=== PATIENT | female | born 1985 | race Caucasian/White ===

== ENCOUNTER 2018-09-16 13:12 | Emergency (ER) | payer MEDICAID ==
[~2018-09-16] VITALS: Ht 160 cm; Wt 47.6 kg
[2018-09-16] MEDS ORDERED: NICOTINE PATCH1 EAC4 TD (13:34)
[2018-09-16] MEDS ORDERED: ESSENTIAL DAIL1 EACH PO (13:35)
[2018-09-16] MEDS ORDERED: OMEPRAZOLE20 MG PO (13:35)
[2018-09-16] MEDS ORDERED: VITAMIN B-1100 M1 PO (13:35)
[2018-09-16] MEDS ORDERED: FOLIC ACID1 MG PO (13:36)
[2018-09-16] MEDS ORDERED: HYDROXYZINE HCL25 MG PO (13:37)
[2018-09-16] MEDS ORDERED: LIBRIUM (13:57)
[2018-09-16] MEDS ORDERED: TYLENOL325 M1 PO (13:57)
[2018-09-16] MEDS ORDERED: MAGNESIUM400 MG PO (17:32)
[2018-09-16] MEDS ORDERED: K-TAB ER20 MEQ PO (17:32)
--- OUTSIDE RECORDS SUMMARY | 2018-09-16 18:18 | XMS ---
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 No recent Security Events currently on file CRITERIA MET - [facility] - 2 Visits in 30 Days CARE PROVIDERS TAYLA QUINTERO Counselor: Mental Health Current PHONE: [phone] GAY GAINES [facility]/Behavioral Health Current PHONE: [phone] TERRY Potts [facility] [place] 05/24/2012-Current PHONE: Unknown [facility] Mental Health Provider Current for Living PHONE: [phone] JENNIFER STEWART Primary Care 05/24/2012-Current PHONE: Unknown Talya Quintero Primary Care Current PHONE: Unknown James Potts MD Primary Care 12/21/2011-Current PHONE: Unknown Billy Campbell Primary Care 12/24/2011-Bob Soni MD PHONE: Unknown Alesha Esteban Primary Care Current Family Medicine PHONE: [phone] Lorenza has no Care Guidelines for this patient. Janay VISIT COUNT (12 MO.) [address] [place] [address] BRADLEY Anders TOTAL 6 NOTE: Visits indicate total known visits. ED/UCC VISIT TRACKING (12 MO.) 09/16/2018 13:13 [facility] [place] TYPE: Emergency COMPLAINT: - WEAKNESS 09/13/2018 11:52 [facility]. TYPE: Emergency DIAGNOSES: - detoxing - Alcohol dependence with withdrawal, uncomplicated - Withdrawal (Alcohol) 06/25/2018 20:27 [facility] OR [facility]. TYPE: Emergency DIAGNOSES: - Shortness of Breath - Possible Pneumonia - Bronchitis, not specified as acute or chronic 04/26/2018 22:04 [facility] OR [facility]. TYPE: Emergency DIAGNOSES: - Abdominal Distension - Flank pain; Urinary pain - Abdominal distension (gaseous) 03/19/2018 22:17 [facility] OR [facility]. TYPE: Emergency DIAGNOSES: - Nose Deformity - Fracture of nasal bones, initial encounter for closed fracture - Facial Injury - Alcohol use, unspecified with intoxication, uncomplicated 02/22/2018 22:01 [facility] TYPE: Emergency DIAGNOSES: - Abdominal Pain - Unspecified abdominal pain INPATIENT VISIT TRACKING (12 MO.) No inpatient visits to display in this time frame [email or web address]
== END 2018-09-16 18:10 | disposition home or self-care (01) ==
LOC: ED 13:12
DX: E87.6 Hypokalemia (principal); E83.42 Hypomagnesemia; F10.239 Alcohol dependence with withdrawal, unspecified; F43.10 Post-traumatic stress disorder, unspecified; F17.200 Nicotine dependence, unspecified, uncomplicated; Z91.013 Allergy to seafood; Z91.030 Bee allergy status; Z79.899 Other long term (current) drug therapy
CPT/HCPCS: 71045; 80053; 81001; 83735; 85025; 96361; 96365; 96366; 96375; 99285-25; C9113; J2060; J2405; J3480; J7030

== ENCOUNTER 2018-09-28 19:21 | Emergency (ER) | payer MEDICAID ==
[~2018-09-28] VITALS: Ht 160 cm; Wt 47.6 kg
[~2018-09-28 19:21] MED LIST: ESSENTIAL DAIL1 EACH PO; FOLIC ACID1 MG PO; HYDROXYZINE HCL25 MG PO; K-TAB ER20 MEQ PO; LIBRIUM; MAGNESIUM400 MG PO; NICOTINE PATCH1 EAC4 TD; OMEPRAZOLE20 MG PO; TYLENOL325 M1 PO; VITAMIN B-1100 M1 PO
--- OUTSIDE RECORDS SUMMARY | 2018-09-28 19:24 | XMS ---
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 No recent Security Events currently on file CRITERIA MET - [facility] - 2 Visits in 30 Days CARE PROVIDERS TALYA QUINTERO Counselor: Mental Health Current PHONE: [phone] GAY GAINES [facility]/Behavioral Health Current PHONE: [phone] TERRY Potts [facility] [place]24/2012-Current PHONE: Unknown [facility] Mental Health Provider Current for Living PHONE: [phone] PCP_Unattributed Primary Care 05/24/2012-Current PHONE: Unknown Talya Quintero Primary Care Current PHONE: Unknown James Potts MD Primary Care 12/21/2011-Current PHONE: Unknown Billy Campbell Primary Care 12/24/2011-Bob Soni MD PHONE: Unknown Alesha Esteban Primary Care Current Family Medicine PHONE: [phone] Lorenza has no Care Guidelines for this patient. Janay VISIT COUNT (12 MO.) 5 [facility] 2 BRADLEY Anders TOTAL 7 NOTE: Visits indicate total known visits. ED/UCC VISIT TRACKING (12 MO.) 09/28/2018 19:22 [facility] [place] TYPE: Emergency COMPLAINT: - SHAKING,COLD 09/16/2018 13:13 [facility] [place] TYPE: Emergency COMPLAINT: - WEAKNESS DIAGNOSES: - Alcohol dependence with withdrawal, unspecified - Weakness - Hypomagnesemia - Post-traumatic stress disorder, unspecified - Allergy to seafood - Bee allergy status - Hypokalemia - Other long-term (current) drug therapy - Nicotine dependence, unspecified, uncomplicated 09/13/2018 11:52 [facility]. TYPE: Emergency DIAGNOSES: - detoxing - Alcohol dependence with withdrawal, uncomplicated - Withdrawal (Alcohol) 06/25/2018 20:27 [facility] OR [facility]. TYPE: Emergency DIAGNOSES: - Shortness of Breath - Possible Pneumonia - Bronchitis, not specified as acute or chronic 04/26/2018 22:04 [facility] OR [facility]. TYPE: Emergency DIAGNOSES: - Abdominal Distension - Flank pain; Urinary pain - Abdominal distension (gaseous) 03/19/2018 22:17 [facility] OR [facility]. TYPE: Emergency DIAGNOSES: - Nose Deformity - Fracture of nasal bones, initial encounter for closed fracture - Facial Injury - Alcohol use, unspecified with intoxication, uncomplicated 02/22/2018 22:01 [facility] OR [facility]. TYPE: Emergency DIAGNOSES: - Abdominal Pain - Unspecified abdominal pain INPATIENT VISIT TRACKING (12 MO.) No inpatient visits to display in this time frame [email or web address]
== END 2018-09-28 21:38 | disposition home or self-care (01) ==
LOC: ED 19:21
DX: E87.6 Hypokalemia (principal); F43.10 Post-traumatic stress disorder, unspecified; F41.9 Anxiety disorder, unspecified; Z87.01 Personal history of pneumonia (recurrent); F17.200 Nicotine dependence, unspecified, uncomplicated; Z91.013 Allergy to seafood; Z91.030 Bee allergy status; Z91.038 Other insect allergy status; Z79.899 Other long term (current) drug therapy
CPT/HCPCS: 80053; 83735; 85025; 96360; 99284-25; J7030

== ENCOUNTER 2018-10-27 14:00 | Emergency (ER) | payer MEDICAID ==
[~2018-10-27] VITALS: Ht 160 cm; Wt 47.6 kg
--- OUTSIDE RECORDS SUMMARY | ~2018-10-27 | XMS | Clinical Summary ---
Demographics + + + | Address | [address] | | | [place] [address] | + + + | Home Phone | | + + + | Preferred Language | Unknown | + + + | Marital Status | Single | + + + | Restorationist Affiliation | Unknown | + + + | Race | Unknown | + + + | Ethnic Group | Other Race | + + + Author + + + | Author | [facility] | + + + | Organization | [facility] | + + + | Address | Unknown | + + + | Phone | Unavailable | + + + Support + + +---------+ + | Name | Relationship | Address | Phone | + + +---------+ + | NONE,NONE | ECON | Unknown | Unavailable | + + +---------+ + Care Team Providers + +------+ + | Care Coupon Manifest Clerk Name | Role | Phone | + +------+ + PP | Unavailable | + +------+ + Source Comments TAMANNA is fully live on both [facility] and [facility] InPatient.[facility] Allergies Not on File Current Medications Not on file Active Problems Not on file Social History + +-------+ +--------+------+ | Tobacco Use | Types | Packs/Day | Years | Date | | | | | Used | | + +-------+ +--------+------+ | Never Assessed | | | | | + +-------+ +--------+------+ + + + | Sex Assigned at | Date Recorded | | | | + + + | Not on file | | + + + Plan of Treatment + + + + + | Health Maintenance | Due Date | Last Done | Comments | + + + + + | Influenza (Flu) | | | | | vaccination (#1) | 8 | | | + + + + + Results Not on filefrom Last 3 Months"
--- OUTSIDE RECORDS SUMMARY | ~2018-10-27 | XMS | Clinical Summary ---
Demographics + + + | Address | [address] | | | [place] [address] | + + + | Home Phone | | + + + | Preferred Language | Unknown | + + + | Marital Status | Single | + + + | Anabaptist Affiliation | Unknown | + + + [...] Team Providers + +------+ + | Care Delivery Driver/Supervisor Name | Role | Phone | + +------+ + PP | Unavailable | + +------+ + Source Comments TAMANNA is fully live on both [facility] and [facility] InPatient.[facility] Allergies Not on File Current Medications Not [...]
--- OUTSIDE RECORDS SUMMARY | 2018-10-27 14:02 | XMS ---
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 No recent Security Events currently on file CRITERIA MET - [facility] - 2 Visits in 30 Days CARE PROVIDERS Farhad Quintero Counselor: Mental Health Current PHONE: [phone] GAY GAINES [facility]/Behavioral Health Current PHONE: [phone] TERRY Potts [facility] [place]24/2012-Current PHONE: Unknown [facility]: Mental Health 08/22/2018-Current [facility] PHONE: [phone] [facility] Mental Health Provider 08/22/2018-Current for Living PHONE: [phone] TERRY Potts Primary Care 05/24/2012-Current PHONE: Unknown Farhad Quintero Primary Care Current PHONE: Unknown James Potts MD Primary Care 12/21/2011-Current PHONE: Unknown Billy Campbell Primary Care 12/24/2011-Bob Soni MD PHONE: Unknown Alesha Esteban [facility] PHONE: [phone] Lorenza has no Care Guidelines for this patient. [place] VISIT COUNT (12 MO.) 5 [place] [address] BRADLEY Olivo Gerry TOTAL 8 NOTE: Visits indicate total known visits. 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 TYPE: Emergency DIAGNOSES: - detoxing - Alcohol dependence with withdrawal, uncomplicated - Withdrawal (Alcohol) 06/25/2018 20:27 [facility] OR [facility]. TYPE: Emergency DIAGNOSES: - Shortness of Breath - Possible Pneumonia - Bronchitis, not specified as acute or chronic 04/26/2018 22:04 [facility] OR [facility]. TYPE: Emergency DIAGNOSES: - Abdominal Distension - Flank pain; Urinary pain - Abdominal distension (gaseous) 03/19/2018 22:17 [facility] OR [facility]. TYPE: Emergency DIAGNOSES: - Nose Deformity - Fracture of nasal bones, initial encounter for closed fracture - Facial Injury - Alcohol use, unspecified with intoxication, uncomplicated 02/22/2018 22:01 [facility] TYPE: Emergency DIAGNOSES: - Abdominal Pain - Unspecified abdominal pain INPATIENT VISIT TRACKING (12 MO.) No inpatient visits to display in this time frame [id number]
[2018-10-27] MEDS ORDERED: K-TAB ER20 MEQ PO (15:54)
[2018-10-27] MEDS ORDERED: ONDANSETRON ODT8 MG PO (15:54)
--- NOTE | 2018-10-28 07:03 | EKG ---
[facility] [address] [place], [place] [address] Signed Normal sinus rhythm Low voltage QRS Borderline ECG No previous ECGs available Confirmed by PAULA DSOUZA MD ([id number]) on 10/28/2018 7:03:37 AM Electronically Signed By: PAULA DSOUZA MD 10/28/18 0703 PATIENT NAME: DALLAS,MOIRA Dean Electrocardiogram DATE OF : 83 PHYSICIAN: PAULA DSOUZA MD REPORT #: [id number] REPORT IS CONFIDENTIAL AND NOT TO BE RELEASED WITHOUT AUTHORIZATION
== END 2018-10-27 16:12 | disposition home or self-care (01) ==
LOC: ED 14:00
DX: E87.6 Hypokalemia (principal); K29.70 Gastritis, unspecified, without bleeding; K21.9 Gastro-esophageal reflux disease without esophagitis; F43.10 Post-traumatic stress disorder, unspecified; F41.9 Anxiety disorder, unspecified; Z87.891 Personal history of nicotine dependence; Z91.013 Allergy to seafood; Z91.030 Bee allergy status; Z79.899 Other long term (current) drug therapy
CPT/HCPCS: 80053; 83735; 84484; 85025; 93005; 93010; 99285-25